=== PATIENT | female | born 1985 | race American Indian/Alaskan Native ===

== ENCOUNTER 2017-05-26 08:46 | Emergency (ER) | payer OTHER ==
[2017-05-26 10:02] LABS: Anion Gap 16 mmol/L; BUN/Creatinine Ratio 12.85; Basophils % (Auto) 0.5 % (0.0-1.8); Blood Urea Nitrogen 9 mg/dL (7-17); Calcium 8.9 mg/dL (8.4-10.2); Carbon Dioxide 26 mmol/L (22-30); Chloride 102.2 mmol/L (98-107); Eosinophils % (Auto) 1.2 % (0.0-4.3); Glucose 102 mg/dL (65-100); Hematocrit 35.1 % (30.3-42.9); Hemoglobin 11.2 gm/dl (10.1-14.3); Mean Corpuscular HGB Conc 32 % (30-34); Mean Corpuscular Hemoglobin 27 pg (28-32); Mean Corpuscular Volume 84 fl (79-97); Platelet Count 360 K/mm3 (140-440); Potassium 4.6 mmol/L (3.6-5.0); Red Blood Count 4.16 M/mm3 (3.65-5.03); Red Cell Distribution Width 17.5 % (13.2-15.2); Sodium 140 mmol/L (137-145); White Blood Count 7.8 K/mm3 (4.5-11.0)
[2017-05-26 10:18] LABS: Urine Drugs of Abuse Note Disclamer
[2017-05-26 10:26] LABS: Bilirubin,Urine NEG (Negative); Blood,Urine SM (Negative); Ketones,Urine NEG (Negative); Leukocyte Esterase,Urine NEG (Negative); Mucus,Urine FEW /HPF; Nitrite,Urine NEG (Negative); Protein,Urine <15 mg/dL mg/dL (Negative); Urobilinogen,Urine < 2.0 mg/dL (<2.0); WBC,Urine < 1.0 /HPF (0.0-6.0)
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
--- NOTE | 2017-05-27 15:33 | Consultation ---
History of Present Illness - Reason for Consult Consult date: 05/27/17 Reason for consult: Mental Health Evaluation Requesting physician: SALENA HARRIS - Chief Complaint Chief complaint: "I can't handle it anymore" - History of Present Psychiatric Illness 31-year-old female with a past medical history of anemia presents to the hospital with suicidal ideation. Today patient is emotional, anxious, but cooperative during assessment. She stated being suicidal for months because of her psychosocial stressors (unemployed, financial obligation, parenting). She stated that she want to run into ongoing traffic to end her life. She stated being the blame for most of her issues. Patient admitted that she can not read or write. She stated that she is embarrassed because of that. She stated that this has hindered her from getting a job, because she can't fill out the application appropriately. She stated that her kids are with other family members and her youngest was adopted as a infant. She rate her depression/ anxiety 10/10, with 10 being the worse. She denies HI's and AVH's. She stated that her sleep recently has been disturbed (can't stay sleep) and she has been experiencing a poor appetite. She admit to smoking marijuana to "mellow out." She denies any other recreational drug use and excessive alcohol consumption ( etoh). Medications and Allergies Allergies Allergy/AdvReac Type Severity Reaction Status Date / Time No Known Allergies Allergy Verified 05/26/17 09:19 Home Medications Medication Instructions Recorded Confirmed Last Taken Type Ferrous Sulfate [Feosol 325 MG tab] 325 mg PO TID #90 tablet 09/03/16 05/26/17 Unknown Rx Past psychiatric history - Past Medical History Past Medical History: No medical history Past Surgical History: No surgical history - past Psychiatric treatment and history psychiatric treatment history: She denies a psy hx and fam psy hx. - Social History Social history: other (Homeless, 9th grade education, Job [employer]) Mental Status Exam - Vital signs Last Vital Signs Temp 98.4 F 05/27/17 08:57 Pulse 68 05/27/17 08:57 Resp 18 05/27/17 08:58 BP 113/57 05/27/17 08:57 Pulse Ox 99 05/27/17 08:58 - Exam Narrative exam: ROS: (+) depression MSE: Appearance: cooperative, anxious, emotional Behavior: regular eye contact Speech: regular rate and tone Mood: "depressed" Affect: labile Thought Process: linear Thought Content: denies HI's and AVH's Motor Activity: ambulatory Cognition: A/Ox 3 Insight: limited Judgment: limited Results Result Diagrams: 05/26/17 09:32 05/26/17 09:32 All other labs normal. Assessment and Plan Assessment and plan: Impression: MDD sever type, FRANCISCO J. Today patient is emotional, anxious, but cooperative during assessment. Patient has SI's. Patient is homeless. DDx: R/O Bipolar Recommendation/Plan: Continue 1013 with placement to inpatient psy services. Start Remeron 15 mg PO HS for depression/sleep consolidation and Vistaril 25 mg PO BID for anxiety. Discussed possible suicidality/medication induced daryl reference Remeron with patient. Discussed generalized coping skills with patient.
[2017-05-27] MEDS: VISTARIL PO SCH ×2 (16:18→21:59)
[2017-05-27] MEDS: REMERON PO SCH (21:59)
[2017-05-28] MEDS: VISTARIL PO SCH ×2 (10:40→22:04)
--- NOTE | 2017-05-28 16:05 | Progress Note ---
Subjective - Reason for Consult Consult date: 05/28/17 Reason for consult: follow up - Chief Complaint Chief complaint: "I'm the same." 31-year-old female with a past medical history of anemia presented to the hospital with suicidal ideation. She states she is the same as she was when she came in and knows she needs psychiatric help. She is dysphoric and irritable. She reports the Vistaril does not help her anxiety and the Remeron did not help her sleep. She stated that she want to run into ongoing traffic to end her life. She denies HI and AVHs. Mental Status Exam - Vital signs Last Vital Signs Temp 98.4 F 05/28/17 10:00 Pulse 70 05/28/17 10:00 Resp 18 05/28/17 13:07 BP 106/72 05/28/17 10:00 Pulse Ox 99 05/28/17 13:07 Assessment and Plan MSE: ROS: (+) depression Appearance: cooperative, dysphoric Behavior: regular eye contact Speech: regular rate and tone Mood: "depressed" Affect: labile Thought Process: linear Thought Content: reports suicidal ideation. no homicidal ideation. Perceptions: no AVH Motor Activity: ambulatory Cognition: A/Ox 3 Insight: limited Judgment: limited Assessment and plan: Impression: MDD sever type, FRANCISCO J. Complains of severe anxiety. Suicidal ideation present Patient is homeless. DDx: R/O Bipolar Recommendation/Plan: Continue 1013 with placement to inpatient psy services. Continue Remeron 15 mg PO HS for depression/sleep consolidation and increase Vistaril to 25mg am, afternoon and 50mg hs for anxiety.
[2017-05-28] MEDS: REMERON PO SCH (22:08)
[2017-05-29] MEDS ORDERED: TYLENOL PO ONE (11:53)
[2017-05-29] MEDS: VISTARIL PO SCH ×3 (12:05→22:12)
--- NOTE | 2017-05-29 13:07 | Progress Note ---
Subjective - Reason for Consult Consult date: 05/29/17 Reason for consult: follow up - Chief Complaint Chief complaint: "I'm the same." 31-year-old female with a past medical history of anemia presented to the hospital with suicidal ideation. She states she is the same as she was when she came in and knows she needs psychiatric help. She is dysphoric and irritable. She reports she did not sleep at all last night. She reports the Vistaril does not help her anxiety and the Remeron did not help her sleep. She stated that she want to run into ongoing traffic to end her life. She denies HI but endorses auditory hallucinations of telling her she's dumb and to . Mental Status Exam - Vital signs Last Vital Signs Temp 98.8 F 05/29/17 09:31 Pulse 74 05/29/17 09:31 Resp 18 05/29/17 09:31 BP 100/54 05/29/17 09:31 Pulse Ox 99 05/29/17 09:31 Assessment and Plan MSE: ROS: (+) depression Appearance: cooperative, dysphoric Behavior: regular eye contact Speech: regular rate and tone Mood: "depressed" Affect: labile Thought Process: linear Thought Content: reports suicidal ideation. no homicidal ideation. Perceptions: AH telling her to Motor Activity: ambulatory Cognition: A/Ox 3 Insight: limited Judgment: limited Assessment and plan: Impression: MDD severe type with psychotic features, r/o bipolar disorder FRANCISCO J. Complains of severe anxiety. Suicidal ideation present Patient is homeless. DDx: R/O Bipolar Recommendation/Plan: Continue 1013 with placement to inpatient psy services. Discontinue Remeron as it is ineffective for sleep and Seroquel 100mg hs was ordered for mood and psychotic symptoms. Continue Vistaril to 25mg am, afternoon and 50mg hs for anxiety.
[2017-05-30] MEDS: VISTARIL PO SCH ×3 (10:05→23:00)
--- NOTE | 2017-05-30 13:20 | Progress Note ---
Subjective - Reason for Consult Consult date: 05/30/17 Reason for consult: Psychiatry Follow-up - Chief Complaint Chief complaint: "I'm the same." 31-year-old female with a past medical history of anemia presented to the hospital with suicidal ideation. Today patient is calm and cooperative, but withdrawn and sad during the assessment. She stated that the voices are still there telling her she is a "failure." She stated that she tries to block them out, but unsuccessful. She states that the SI's have not decreased. She is adamant about wanting help to learn how to read and write. She denies HI's and VH's, but stated that she still have a problem staying asleep. She denies any side effects of her medications. Mental Status Exam - Vital signs Last Vital Signs Temp 97.9 F 05/30/17 08:30 Pulse 66 05/30/17 08:30 Resp 18 05/30/17 08:30 BP 112/58 05/30/17 08:30 Pulse Ox 100 05/30/17 08:30 - Exam Narrative exam: Appearance: cooperative, dysphoric Behavior: regular eye contact Speech: regular rate and tone Mood: "depressed" withdrawn, sad Affect: labile Thought Process: linear Thought Content: denies HI's and VH's Motor Activity: ambulatory Cognition: A/Ox 3 Insight: limited Judgment: limited Assessment and Plan Impression: MDD severe type with psychotic features, FRANCISCO J. Today patient is calm and cooperative, but withdrawn and sad during the assessment. Patient had SI's. Patient still experiencing AH's. Recommendation/Plan: Continue 1013 with placement to inpatient psy services. Modify Seroquel to 200 mg PO HS for mood/psychotic symptoms, Vistaril to 25mg am , afternoon and 50mg hs for anxiety. Discussed possible metabolic side effects of Seroquel with patient.
[2017-05-30] MEDS ORDERED: MOTRIN PO ONE (23:06)
[2017-05-31] MEDS ORDERED: MOTRIN PO ONE (00:32)
[2017-05-31] MEDS: VISTARIL PO SCH ×3 (10:17→22:57)
--- NOTE | 2017-05-31 11:45 | Progress Note ---
Subjective - Reason for Consult Consult date: 05/31/17 Reason for consult: Psychiatry Follow-up - Chief Complaint Chief complaint: "How are you today" 31-year-old female with a past medical history of anemia presented to the hospital with suicidal ideation. Today patient is calm and cooperative during assessment. She stated that DF came to see her yesterday about one of her kids. She was upset about that meeting. She believe her mom called the agency. She stated that her SI's has decreased and she denies AVH's. She denies a poor appetite and stated that the AH's has ceased. She denies any side effects of her medications. Mental Status Exam - Vital signs Last Vital Signs Temp 98.3 F 05/30/17 20:00 Pulse 84 05/30/17 20:00 Resp 18 05/30/17 20:00 BP 110/68 05/30/17 20:00 Pulse Ox 99 05/30/17 20:00 - Exam Narrative exam: MSE: Appearance: cooperative, calm Behavior: regular eye contact Speech: regular rate and tone Mood: "okay" Affect: labile Thought Process: linear Thought Content: denies HI's and VH's Motor Activity: ambulatory Cognition: A/Ox 3 Insight: limited Judgment:limited Assessment and Plan Impression: MDD severe type with psychotic features, FRANCISCO J. Today patient is calm and cooperative. Decreasing SI's. Patient denies AH's. Recommendation/Plan: Continue 1013 with placement to inpatient psy services. Continue 200 mg PO HS for mood. Vistaril to 25mg am, afternoon and 50mg hs for anxiety. Discussed possible metabolic side effects of Seroquel with patient.
[2017-06-01] MEDS: VISTARIL PO SCH ×3 (10:48→22:19)
--- NOTE | 2017-06-01 23:30 | Progress Note ---
Subjective - Reason for Consult Consult date: 06/01/17 Reason for consult: follow up - Chief Complaint Chief complaint: "I don't know." 31-year-old female with a past medical history of anemia presented to the hospital with suicidal ideation. Today patient is calm and cooperative during assessment. She stated that [facility] came to see her two days ago about one of her kids and she is upset about this. She reported vague suicidal thoughts but denies a plan, and she reports auditory hallucinations telling her she is not worth it. She denies a plan for suicide. She denies any side effects of her medications. Mental Status Exam - Vital signs Last Vital Signs Temp 98.5 F 06/01/17 08:48 Pulse 71 06/01/17 08:48 Resp 20 06/01/17 13:53 BP 109/61 06/01/17 08:48 Pulse Ox 99 06/01/17 13:53 Assessment and Plan MSE: Appearance: cooperative, calm Behavior: regular eye contact Speech: regular rate and tone Mood: "okay" Affect: labile Thought Process: linear Thought Content: denies HI's and VH's Motor Activity: ambulatory Cognition: A/Ox 3 Insight: limited Judgment:limited Assessment and Plan Impression: MDD severe type with psychotic features, FRANCISCO J. Today patient is calm and cooperative. Vague suicidal ideation. No plan. States "I don't know." Recommendation/Plan: Continue 1013 with placement to inpatient psy services. Continue 200 mg PO HS for mood. Vistaril to 25mg am, afternoon and 50mg hs for anxiety.
[2017-06-02] MEDS: VISTARIL PO SCH ×2 (10:40→18:37)
--- NOTE | 2017-06-02 12:46 | Progress Note ---
Subjective - Reason for Consult Consult date: 06/02/17 Reason for consult: Psychiatry Follow-up - Chief Complaint Chief complaint: "I am okay I guess" 31-year-old female with a past medical history of anemia presented to the hospital with suicidal ideation. Today patient is calm and cooperative during the assessment. She stated that her SI's "come and go." Her plan would be to walk into traffic to kill herself. She stated that she need a stable life for herself and kids. She denies HI's, AVH's, but rate her depression 6/10, with 10 being the worse. She denies any side effects of her medications. Mental Status Exam - Vital signs Last Vital Signs Temp 98 F 06/02/17 05:15 Pulse 84 06/02/17 05:15 Resp 18 06/02/17 11:18 BP 117/65 06/02/17 05:15 Pulse Ox 97 06/02/17 05:15 - Exam Narrative exam: MSE: Appearance: cooperative, calm Behavior: regular eye contact Speech: regular rate and tone Mood: "okay" Affect: labile Thought Process: linear Thought Content: denies HI's and AVH's Motor Activity: ambulatory Cognition: A/Ox 3 Insight: limited Judgment:limited Assessment and Plan Impression: MDD severe type with psychotic features, FRANCISOC J. Today patient is calm and cooperative. Passive SI's. Patient denies AH's. Recommendation/Plan: Continue 1013 with placement to [facility] later today. Continue 200 mg PO HS for mood. Continue Vistaril to 25mg am, afternoon and 50mg hs for anxiety. Discussed possible metabolic side effects of Seroquel with patient.
[2017-06-02 20:03] VITALS: BP 116/72
== END 2017-06-02 22:09 ==
LOC: ED 08:46 → EEVIPCON 08:46 → ED 06-02 22:09
DX: F32.9 Major depressive disorder, single episode, unspecified (principal); R45.851 Suicidal ideations; F17.200 Nicotine dependence, unspecified, uncomplicated
CPT/HCPCS: 36415; 80048; 80307; 81001; 84703; 85025; 99285; G0480; 80320; Q0177